=== PATIENT | male | born 1945 | race African-American/Black ===

== ENCOUNTER 2017-06-03 10:54 | Observation (INO) | payer MEDICARE, OTHER ==
[~2017-06-03] VITALS: Ht 177.8 cm; Wt 129.1 kg
--- NOTE | ~2017-06-03 | CT52 ---
[facility] A Service of [facility] & [facility] RADIOLOGY TEXT RESULTS PATIENT: RON ESPOSITO LOCATION: [facility] 563-01 : 44 UNIT #: [id number] AGE: [address]: Toño Moya MD SEX: M ORDER DR: [id number] [facility] [address] [place], [place] [address] [id number] I MR#: [id number] #: [id number] NAME: RON ESPOSITO : 1945 SEX: M STUDY DATE/TIME: 06/04/2017 12:13 UNIT: [facility] ROOM: [facility] STUDY DESCRIPTION: CT Cervical Spine Wo Cont Attending Physician: Toño Moya M.D. Ordering Physician: Toño Moya M.D. Primary Care Physician: Mendez Wu M.D. MEDICAL IMAGING REPORT This report is preliminary unless electronic signature is present EXAM CT cervical spine without contrast HISTORY Neck pain for 3 days, left side. No injury. FINDINGS This CT exam was performed with one or more of the following radiation dose reduction techniques: Automatic exposure control, adjustment of mA and/or kV according to patient size, and iterative reconstruction. CT cervical spine was performed without contrast. Evaluation of the lower cervical spine is partly limited by patient size and positioning. There is straightening of the normal cervical lordosis. There is severe degenerative disc space narrowing from C4-5 to C7-T1 and moderate disc space narrowing at T1-2 and T2-3. Bfvjd-au-tekxhouf sized broad-based posterior marginal osteophytes at C3-4 and C4-5 and small posterior marginal osteophyte at C5-6. Mild bilateral bony outlet foraminal narrowing C4-5. At C6-7, there is a large broad-based marginal osteophyte, slightly greater to the left of midline posteriorly, causing moderate central canal narrowing, and moderate left-sided outlet foraminal narrowing and mild right outlet foraminal narrowing. At C7-T1, there is also a moderate-sized broad-based marginal osteophyte, greater along the left posterolateral disc margin, with mild bilateral bony outlet foraminal narrowing. IMPRESSION 1. Multilevel degenerative and hypertrophic changes are greater at C6-7 where there is moderate central canal narrowing and moderately severe outlet foraminal narrowing, secondary to large posterior marginal STS. [facility] A Service of [facility] & [facility] RADIOLOGY TEXT RESULTS PATIENT: RON ESPOSITO LOCATION: [facility] 56[facility] : 44 UNIT #: [id number] AGE: [address]: Toño Moya MD SEX: M ORDER DR: osteophyte and additional bony hypertrophic changes. 2. No fracture or subluxation. Multilevel moderately severe degenerative disc space narrowing in the mid and lower cervical spine. Dictated by... Pipo Houser M.D. THIS IS AN ELECTRONICALLY VERIFIED REPORT Pipo Houser M.D. at 06/05/2017 11:01 PM DFL/wander TD: 06/05/2017 01:53 JOB #: [id number] MEDICAL IMAGING REPORT Page 1 of 1 COPY
--- NOTE | ~2017-06-03 | CR72 ---
[facility] A Service of [facility] & [facility] RADIOLOGY TEXT RESULTS PATIENT: RON ESPOSITO LOCATION: [facility] 563-01 : 44 UNIT #: [id number] AGE: [address]: Toño Moya MD SEX: M ORDER DR: [id number] [facility] [address] [place], [place] [address] [id number] I MR#: [id number] #: [id number] NAME: RON ESPOSITO. : 1945 SEX: M STUDY DATE/TIME: 06/03/2017 12:51 UNIT: [facility] ROOM: [facility] STUDY DESCRIPTION: CR Chest Single View Portable Attending Physician: Toño Moya M.D. Ordering Physician: Gino Garcia M.D. Primary Care Physician: Mendez Wu M.D. MEDICAL IMAGING REPORT This report is preliminary unless electronic signature is present EXAM Chest, portable; 06/03/2017, 1251 hours. CLINICAL HISTORY 72-year-old man with 2-day history of neck pain, cough and shortness of air. History of hypertension, prior CABG, bladder cancer and diabetes. COMPARISON No prior chest film available. FINDINGS Portable upright chest demonstrates median sternotomy and CABG changes. There is moderate cardiomegaly. There is a left subclavian dual-lead pacer device with leads over the right atrium and right ventricle. There is an air-filled structure along the right heart border consistent with a large hiatal hernia which was demonstrated on upper GI 04/23/2002. There is mild perihilar vascular crowding with no definite edema, pneumonia or effusion. IMPRESSION There is no prior chest film for correlation. There is moderate enlargement of the cardiac silhouette with prior CABG change and dual lead pacer present. The lungs are clear of acute densities. There is no pleural effusion or pneumothorax. There is a lot of large hiatal hernia present. This was demonstrated on upper GI study 04/23/2002. Dictated by... Fiona Kim M.D. THIS IS AN ELECTRONICALLY VERIFIED REPORT Fiona Kim M.D. at 06/04/2017 9:23 AM JAZMINE/diomedes [facility] A Service of [facility] RADIOLOGY TEXT RESULTS PATIENT: RON ESPOSITO LOCATION: C5 563-01 : 44 UNIT #: [id number] AGE: [address]: Toño Moya MD SEX: M ORDER DR: TD: 06/03/2017 22:01 JOB #: [id number] MEDICAL IMAGING REPORT Page 1 of 1 COPY
--- NOTE | ~2017-06-03 | DS ---
Unit #: [id number] #: [id number] Patient: RON ESPOSITO [id number] [address] [place], [place] [address] [id number] MR#: [id number] NAME: RON ESPOSITO. ROOM: 563 Age: 72 Sex: M Admission Date: 06/03/2017 : 1945 Discharge Date: 06/05/2017 Attending Physician: Toño Moya M.D. Primary Care Physician: Mendez Wu M.D. DISCHARGE SUMMARY DISCHARGE DIAGNOSES 1. Neck and left shoulder pain, myofascial syndrome. 2. Elevated troponin, recent non ST elevation myocardial infarction and occlusion of stent in the mid circumflex on 05/27/2017. His troponin at [facility] on May 27 peaked at 38. On this admission it was 9.84. 3. Coronary artery disease status post coronary artery bypass graft x3 (left internal mammary artery to left anterior descending, saphenous vein graft to the right coronary artery, saphenous vein graft to left circumflex). 4. Cardiac catheterization on 05/27/2017 showed an ejection fraction of 40%, an occluded stent in the mid circumflex, left internal mammary artery to left anterior descending was patent, saphenous vein graft to right coronary artery was patent. 5. Chronic systolic congestive heart failure, left ventricular ejection fraction 40%. 6. Sick sinus syndrome status post permanent pacemaker. 7. History of atrial flutter status post ablation. 8. Diabetes mellitus type 2. 9. Hypertension. 10. Hyperlipidemia. 11. Chronic kidney disease. 12. Obstructive sleep apnea with continuous positive airway pressure. 13. Mild anemia. 14. Elevated LFT. 15. Obesity. DISCHARGE MEDICATIONS 1. Flonase 2 sprays daily. 2. Metformin 500 mg p.o. b.i.d. 3. Phenergan 25 mg p.o. q.6 hours as needed for nausea. 4. Atorvastatin 80 mg p.o. at bedtime. 5. Metoprolol succinate 100 mg p.o. daily. 6. Amlodipine/benazepril 10/40 mg 1 cap by mouth daily. 7. Tradjenta 5 mg p.o. daily. 8. Lantus 66 units subcu daily. 9. Coenzyme Q10 10 mg p.o. daily. 10. Multivitamin 1 p.o. daily. 11. Aspirin 81 mg p.o. daily. 12. Plavix 75 mg p.o. daily. 13. Prilosec 40 mg p.o. daily. 14. Imdur ER 60 mg p.o. daily. 15. Fish oil 1 cap p.o. daily. Unit #: [id number] #: [id number] Patient: [facility] This is a 72-year-old male with a significant cardiac history who is a patient of Dr. Faria with [facility]. He had recent non-ST elevation myocardial infarction in May and had a stent placed to his mid circumflex. On May 27 he had to be readmitted and was diagnosed with another non-ST elevation myocardial infarction. A cardiac cath at that time showed the stent collapsed and had an occlusion of the circumflex. His peak troponin at [facility] during that stay was 38. He presented to the emergency room on June 03 with complaints of persistent dry cough and soreness in his neck and left shoulder. He denied any chest pain or pain in his frontal neck radiating into his jaws, shoulders or elbows. He denied palpitations, dizziness, syncope, fever or chills. In the ER his troponin was found to be elevated at 9.84. He was admitted for further observation and to rule out an ischemic event. Throughout his stay his troponins continued to trend down. His neck and left shoulder pain persisted. Dr. Berlin Kong with pain management was consulted. He received steroid injections, which improved his pain. Today his troponin continues to trend down and is 5.24. He is chest pain free and has had no arrhythmias. He is stable for discharge. He will follow up with Dr. Kong in 2-3 weeks and follow up with Dr. Faria with cardiology as previously scheduled. PHYSICAL EXAMINATION GENERAL: This is an alert and oriented 72-year-old male resting in bed in no acute distress. VITAL SIGNS: His blood pressure 133/76, heart rate 65, temperature is 97.7. CHEST/LUNGS: Clear to auscultation with decreased breath sounds in the bases. HEART: S1, S2. Regular rhythm. Paced. ABDOMEN: Soft, nondistended and nontender. EXTREMITIES: No edema. Pulses are palpable. DIAGNOSTIC STUDIES LABORATORY RESULTS: His glucose is 217, BUN 22, creatinine 1.4, sodium 135, potassium 4.4, chloride 100. Troponin 5.24. Hemoglobin 11.5, hematocrit 36.7, white blood cell count 11.6, platelets 390. IMAGING STUDIES: CT of the cervical spine shows multilevel degenerative and hypertrophic changes greater at C6-7 where there is moderate central canal narrowing and moderately severe outlet foraminal narrowing secondary to large posterior marginal osteophyte and bony hypertrophic changes. There is no fracture or subluxation. Multilevel moderately severe degenerative disk space narrowing in the mid and lower C spine. DISCHARGE INSTRUCTIONS 1. The patient will be discharged home to follow up with Dr. Kong in 2-3 weeks. 2. Follow up with Dr. Faria as previously scheduled. 3. Home medications as per med/rec. 4. Prescriptions sent with patient for Medrol Dosepak and hydrocodone. Unit #: [id number] #: [id number] Patient: RON ESPOSITO Dictated by... Jadyn Timmons APRN for Anselmo Russ/pj TD: 06/07/2017 13:45 JOB #: [id number] DISCHARGE SUMMARY Page 1 of 1 X X DISCHARGE SUMMARY
--- NOTE | ~2017-06-03 | EKG ---
PATIENT: RON ESPOSITO UNIT #: [id number] Ventricular Rate: 70 BPM Atrial Rate: 70 BPM P-R Interval: 168 ms QRS Duration: 164 ms Q-T Interval: 464 ms QTC Calculation(Bezet): 501 ms Calculated R [place]: 28 degrees Calculated T [place]: 121 degrees Diagnosis Line: Atrial-sensed ventricular-paced rhythm Diagnosis Line: Abnormal ECG Diagnosis Line: No previous ECGs available Diagnosis Line: Confirmed by DARIEL SOLIS MD ([id number]) on Diagnosis Line: 06/04/2017 8:29:39 AM INTERPRETING MD: IRMA RICH
--- NOTE | ~2017-06-03 | HP ---
Unit #: [id number] #: [id number] Patient: RON ESPOSITO [id number] [facility]. [place], [place] [address] [id number] MR#: [id number] NAME: RON ESPOSITO ROOM: Age: 72 Sex: M Admission Date: 06/03/2017 : 1945 Attending Physician: Gino Garcia M.D. Primary Care Physician: Mendez Wu M.D. HISTORY AND PHYSICAL HISTORY OF PRESENT ILLNESS This is a 72-year-old -Eritre[place] male with having a recent NSTEMI and a stent placed on May 27 at [facility] in the mid circumflex and he had to be readmitted and on May 27 had another heart catheterization and showed that the stent collapsed and had an occlusion of the circumflex. The patient also has a pacemaker. He is a diabetic, has hypertension, diabetes mellitus, obstructive sleep apnea, history years ago of having ablation for paroxysmal atrial fibrillation. Next, patient came to the emergency room today with persistent dry cough and some soreness in the back of his neck. He denied any chest pain, pain in his frontal neck radiating up into the jaw, shoulders, elbows. He denies any palpitations. No dizziness, presyncope or syncope. Denies any fever or chills. Patient states that he was told he had pneumonia on his admission at [facility] May 21. He is concerned he might be trying to get pneumonia so he came to the emergency room for further evaluation. In the emergency room the patient's blood pressure was 144/78, heart rate 80, respirations 18, temperature is 99.1, O2 sat is 100% on room air. Initial cardiac enzymes EKG: His CK-MB was 16.4 with troponin 9.84. His WBCs are 10, hemoglobin 10.7, hematocrit 34.1. His glucose is 116. His BUN is 18, creatinine 1.2. His EKG shows ventricular paced, atrial sensed, underlying sinus rhythm. His chest x-ray preliminary report did not show anything acute. Patient will be admitted for further evaluation and management. Patient was given 4 mg of morphine, ordered Brilinta 180 mg STAT and Lovenox STAT. PAST MEDICAL HISTORY 1. Recent NSETMI on 05/18/2016, status post cardiac cath which revealed: a. Qawalangin three-vessel coronary artery disease including the left main. b. Two of three patent coronary artery bypass grafts to the LAD and RCA, one saphenous vein graft presumably to the circumflex is occluded. c. XIENCE Alpine drug-eluting stent with PCI to the mid circumflex in a T fashion. d. Moderate disease of the small lower branch of the posterolateral branch after the RCA saphenous vein graft anastomosis, proximal LAD prior to the diagonal takeoff, and proximal circumflex. e. Abdominal aortic stenosis. 2. Readmitted for a chest pain and NSETMI on 05/27/2017. Repeat heart Unit #: [id number] #: [id number] Patient: VAIBHAVRON Yolanda catheterization showed occlusion of the circumflex stent, decreased LV systolic function with ejection fraction of 40%. Noted that prior echo showed a normal EF. 3. Pacemaker. 4. Obstructive sleep apnea, on CPAP. 5. Hypertension. 6. Hyperlipidemia. 7. History of atrial flutter, status post ablation in 2008. 8. History of bladder cancer years ago. 9. Obesity. 10. GERD. 11. Nonsmoker. 12. He had a new diastolic congestive heart failure on admission in [facility]. 13. Chronic kidney disease. PAST SURGICAL HISTORY 1. Coronary artery bypass in 1997 x3 grafts. 2. Status post PCI and stent to the mid circumflex in T fashion on 05/21/2017. 3. Status post ablation for atrial flutter back in 2008. 4. Colonoscopy. 5. Knee surgery. 6. Permanent pacemaker. 7. Dual chamber back in 2013. HOME MEDICATIONS 1. Amlodipine and benazepril which is Lotrel 10/40 one tablet p.o. daily. 2. Aspirin 81 mg daily. 3. Lipitor 80 mg p.o. daily. 4. Clonidine one tablet p.o. b.i.d. 5. Plavix 75 mg daily p.o. daily. 6. CoQ10 one tablet p.o. daily. 7. Flonase one nasal spray each nostril daily. 8. Isosorbide mononitrate which is Imdur 60 mg one tablet daily. 9. Lantus 66 units daily. 10. Tradjenta 5 mg one tablet daily. 11. Glucophage 500 mg one tablet b.i.d. with meals. 12. Metoprolol or Toprol XL 100 mg one tablet daily. 13. Multivitamin one tablet daily. 14. Lockhart 3 fish oil 1000 mg tablet one tablet daily. 15. Prilosec 40 mg one tablet daily. 16. Phenergan 25 mg one tablet p.r.n. ALLERGIES No known allergies. SOCIAL HISTORY Patient lives with his spouse. He is very sedentary. He says he has a hard time walking far as his legs give out. He has been weak. He has neuropathy, been a lifelong nonsmoker, no alcohol or illicit drug abuse. FAMILY HISTORY Both his parents in their 80s. His mother had some type of heart problems. His father of unknown causes. Siblings no known coronary artery disease. REVIEW OF SYSTEMS Unit #: [id number] #: [id number] Patient: RON ESPOSITO CONSTITUTIONAL: Denies fever or chills. No recent weight gain or weight loss. HEENT: Denies headache or dizziness. No visual or hearing changes. No lymphadenopathy or thyromegaly. No difficulty swallowing. CARDIOVASCULAR: Denies chest pain. Denies palpitations. Denies increased lower extremity edema. PULMONARY: A persistent dry cough. Denies paroxysmal nocturnal dyspnea or orthopnea. It is a nonproductive cough. GASTROINTESTINAL: Denies nausea, vomiting, diarrhea and abdominal pain. NEUROLOGICAL: No focal weakness. PHYSICAL EXAMINATION GENERAL: On exam the patient a 72-year-old -Eritrean male in no acute respiratory distress. He is awake, alert and oriented. VITAL SIGNS: Blood pressure 144/78, heart rate 80, respirations 18, temperature 99.1, O2 sats 100% on room air. NECK: Trachea midline. No thyromegaly or lymphadenopathy. Normal carotid upstrokes. No jugular venous distention. HEART: S1, S2, regular rate and rhythm. No clicks, murmurs or rubs. LUNGS: Diminished, otherwise clear. ABDOMEN: Obese, soft, nontender. EXTREMITIES: Pedal pulses are weak. DPs are very faint. PTs are present. DIAGNOSTIC STUDIES LABORATORY: Glucose is 116, BUN 18, creatinine 1.2, eGFR is 69.1, sodium 137, potassium 3.7, chloride 103, CO2 25, calcium is 8.7, total protein 7.6, albumin 2.8, bilirubin total of 0.7, AST 58, ALT 76 and alkaline phosphatase is 50. WBCs 10.1, hemoglobin 10.7, hematocrit 34.1 and platelets of 310. Initial cardiac enzymes: CK-MB is 16.4 with troponin 9.84. Next, CK-MB is 16.3 with a troponin of 10.1. CARDIOVASCULAR: EKG shows ventricular paced rhythm, underlying sinus rhythm. IMPRESSION 1. Elevated troponin, recent non-ST elevation myocardial infarction and occlusion of stent in the mid circumflex on 05/27/2017. 2. Persistent cough. Recent pneumonia. 3. Hypertension. 4. Diabetes mellitus type 2. 5. Hyperlipidemia. 6. Permanent pacemaker. 7. History of paroxysmal atrial flutter status post ablation. 8. Obstructive sleep apnea, used CPAP. 9. Gastroesophageal reflux disease. 10. Mild obesity. 11. Chronic kidney disease. 12. Chronic diastolic congestive heart failure. 13. Left ventricular ejection fraction was normal on the catheterization on 05/21/2017 at [facility]. On last cardiac catheterization 05/27/2017 his ejection fraction was down to 40%. 14. Elevated liver function tests. 15. Nonsmoker. PLAN 1. Patient came in for complaints of some tension in the back of his neck and also a persistent cough. Patient stated he is getting over Unit #: [id number] #: [id number] Patient: RON ESPOISTO pneumonia he was told when he was at [facility] in the early part of May. He denies any fever or chills. His chest x-ray preliminary report does not show anything acute. Patient's cardiac enzymes were obtained and (1) findings. His troponin was elevated at 9.84. Patient denies any signs or symptoms of unstable angina or acute congestive heart failure. The patient was just discharged from [facility] this past Friday which was about three days ago and he had his last heart catheterization less than a week ago. Obtain records from [facility] and on May 27 his troponin was elevated to 38. This may be trending on a downward trend from that troponin. Although until we can get another set of enzymes and evaluate it trending downward will treat. Give a therapeutic dose of Lovenox, stopping the Plavix and starting on Brilinta and giving a loading dose of 180 mg. Will also make sure the patient is on aspirin. 2. It is noted the patient had a fasting lipoid profile at [facility] and those results were done on 05/20/2017: Triglycerides 125, cholesterol 131, HDL 43, LDL 63, TSH less than 0.9. His last troponin peaked at 38, that was on 05/27/2017. 3. The patient's last hemoglobin was on 05/28/2017 which was 11.9 and hematocrit 37. On his last CMP on 05/27/2017 his total bilirubin was 0.7 with AST 73, ALT 58 and alkaline phosphatase is 46. 4. Continue patient on his nitrate, statin, beta tere, Brilinta, dual antiplatelet therapy with aspirin and Brilinta and also therapeutic dosing of Lovenox. 5. Dr. Moya will review the patient, all of his records from [facility] and most likely will get the cath film from [facility] to review. 6. Further recommendations pending per Dr. Moya. Dictated by Analy Hercules A.P.R.N. for Anselmo Russ/ivana TD: 06/03/2017 17:24 JOB #: [id number] HISTORY AND PHYSICAL Page 1 of 1 X Analy Hercules APRN HISTORY AND PHYSICAL
--- NOTE | ~2017-06-03 | BMI ---
[facility] Nutrition Therapy DATE: 06/04/17 Patient: RON ESPOSITO Physician: DARREL Address: [address] Room/Bed: [address] [place] [address], Zip: [place] [address] Admit Date: 06/03/17 Date of : [birth year] Height: 5 10 Weight: 285 129.6 HIGH BMI NOTE: DX: 72 y/o male admitted for chest pain ANTHROPOMETRICS: ht: 5'10" wt: 285# (129 kg) BMI 42 DIET: Healthy heart INTERVENTION: 1. Healthy heart diet RECOMMENDATIONS: 1. Continue current healthy heart diet in order to promote gradual weight loss towards a healthy BMI (19.0-25.0). RD will f/u per protocol. Respectfully, DAYA LÓPEZ, automotive internet sales manager Romaine Kan MS, RD, LD [facility] cc: client file
[~2017-06-03 10:54] MED LIST: ANSAID100 MG PO; ASPIRIN PO; JANUVIA PO; KROGER PHARMACY; LOTREL 5/20 MG1 CAP PO; TOPROL XL PO; ZANTAC PO
[2017-06-03 11:50] LABS: BASOPHIL# 0.1 X10e3 (0-0.3); BASOPHIL% 0.5 % (0-2.5); EOSINOPHIL# 0.1 X10e3 (0-0.7); EOSINOPHIL% 0.8 % (0.0-7.0); HEMATOCRIT 34.1 % (38.0-50.0); HEMOGLOBIN 10.7 gm/dL (13.0-16.0); LYMPHOCYTE# 1.9 X10e3 (1.0-3.5); LYMPHOCYTE% 18.3 % (17.0-45.0); MEAN CELL VOLUME 81.5 FL (83-96); MEAN CORPUSCULAR HEMOGLOBIN 25.5 PG (28-34); MEAN CORPUSCULAR HGB CONC 31.3 g/dL (30-36); MEAN PLATELET VOLUME 9.3 FL (6.5-11.5); MONOCYTE# 0.8 X10e3 (0-1.0); MONOCYTE% 7.9 % (3.0-12.0); NEUTROPHIL# 7.4 X10e3 (1.5-7.1); NEUTROPHIL% 72.5 % (40-75); PLATELET COUNT 310 X10e3 (140-420); RED BLOOD COUNT 4.18 X10e (3.90-5.60); RED CELL DISTRIBUTION WIDTH 15.7 % (11.0-15.5); WHITE BLOOD COUNT 10.1 X10e3 (4.0-10.5)
[2017-06-03 12:05] LABS: DIFF IND NO
[2017-06-03 12:12] LABS: POC - CKMB 16.4 ng/mL (0.0-7.9); POC - TROPONIN 9.84 ng/mL (<=0.05)
[2017-06-03 12:18] LABS: ALBUMIN SERUM 2.8 g/dL (3.5-5.0); BILIRUBIN, DIRECT 0.1 mg/dL (0.0-0.2); BILIRUBIN,INDIRECT 0.6 mg/dL (0.0-0.9); BILIRUBIN,TOTAL 0.7 mg/dL (0.2-2.0); CALCIUM SERUM 8.7 mg/dL (8.4-10.2); CREATININE SERUM 1.2 mg/dL (0.6-1.4); GLOM FILT RATE Estimated 69.1 mL/min (>60); POTASSIUM 3.7 mmol/L (3.5-5.1); PROTEIN TOTAL SERUM 7.6 g/dL (6.0-8.3)
[2017-06-03] MEDS ORDERED: IMDUR-ER60 M2 PO (13:05)
[2017-06-03] MEDS ORDERED: AMLODIPINE-BEN1 EAC5 PO (13:05)
[2017-06-03] MEDS ORDERED: METOPROLOL SUC100 MG PO (13:06)
[2017-06-03] MEDS ORDERED: LANTUS100 U/ML SUBQ (13:06)
[2017-06-03] MEDS ORDERED: PHENERGAN25 M1 PO (13:07)
[2017-06-03] MEDS ORDERED: PRILOSEC PO (13:07)
[2017-06-03] MEDS ORDERED: METFORMIN HCL500 M1 PO (13:07)
[2017-06-03] MEDS ORDERED: ASPIRIN81 M2 PO (13:07)
[2017-06-03] MEDS ORDERED: CLOPIDOGREL75 MG PO (13:08)
[2017-06-03 13:39] LABS: POC - CKMB 16.3 ng/mL (0.0-7.9); POC - TROPONIN 10.1 ng/mL (<=0.05)
[2017-06-03] MEDS ORDERED: CATAPRES0.1 MG PO (14:29)
[2017-06-03] MEDS ORDERED: FLONASE ALLERG9.9 ML (14:30)
[2017-06-03] MEDS ORDERED: COENZYME Q-1030 MG PO (14:30)
[2017-06-03] MEDS ORDERED: TRADJENTA5 MG PO (14:31)
[2017-06-03] MEDS ORDERED: MULTIVITAMINS1 EAC3 PO (14:32)
[2017-06-03] MEDS ORDERED: FISH OIL 1,0001 EAC1 PO (14:33)
[2017-06-03 20:03] LABS: %MB 1.8 % (0.0-4.0); MB 7.4 ng/ml
[2017-06-04 02:16] LABS: %MB 1.6 % (0.0-4.0)
[2017-06-04 06:27] LABS: HEMATOCRIT 33.3 % (38.0-50.0); HEMOGLOBIN 10.7 gm/dL (13.0-16.0); MEAN CELL VOLUME 80.1 FL (83-96); MEAN CORPUSCULAR HEMOGLOBIN 25.8 PG (28-34); MEAN CORPUSCULAR HGB CONC 32.2 g/dL (30-36); RED BLOOD COUNT 4.15 X10e (3.90-5.60); RED CELL DISTRIBUTION WIDTH 15.4 % (11.0-15.5); WHITE BLOOD COUNT 10.6 X10e3 (4.0-10.5)
[2017-06-04 07:02] LABS: ALBUMIN SERUM 3.1 g/dL (3.5-5.0); BILIRUBIN,TOTAL 0.9 mg/dL (0.2-2.0); BUN/CREATININE RATIO 13.07; CALCIUM SERUM 9.1 mg/dL (8.4-10.2); CREATININE SERUM 1.3 mg/dL (0.6-1.4); GLOM FILT RATE Estimated 62.8 mL/min (>60); POTASSIUM 3.7 mmol/L (3.5-5.1); PROTEIN TOTAL SERUM 8.3 g/dL (6.0-8.3)
[2017-06-04 16:39] LABS: URINE APPEARANCE CLEAR; URINE BILIRUBIN NEG (NEG); URINE BLOOD TRACE (NEG); URINE COLOR YELLOW; URINE GLUCOSE NEG (NEG); URINE KETONE NEG (NEG); URINE LEUKOCYTE ESTERASE NEG (NEG); URINE NITRATE NEG (NEG); URINE PROTEIN TRACE (NEG); URINE SPECIFIC GRAVITY 1.019 (1.003-1.035)
[2017-06-04 16:42] LABS: URBCS1 AUWI 0-2 /[HPF] (0-2); URINE BACTERIA AUWI NEG (NEGATIVE); URINE SQUAMOUS EPITHELIAL CELL NONE SEEN /[HPF]; UWBCS1 AUWI 0-2 (0-5)
[2017-06-05 06:53] LABS: HEMATOCRIT 36.7 % (38.0-50.0); HEMOGLOBIN 11.5 gm/dL (13.0-16.0); MEAN CELL VOLUME 81.9 FL (83-96); MEAN CORPUSCULAR HEMOGLOBIN 25.6 PG (28-34); MEAN CORPUSCULAR HGB CONC 31.3 g/dL (30-36); RED BLOOD COUNT 4.47 X10e (3.90-5.60); RED CELL DISTRIBUTION WIDTH 15.7 % (11.0-15.5); WHITE BLOOD COUNT 11.6 X10e3 (4.0-10.5)
[2017-06-05 07:49] LABS: BUN/CREATININE RATIO 15.71; CALCIUM SERUM 9.5 mg/dL (8.4-10.2); CREATININE SERUM 1.4 mg/dL (0.6-1.4); GLOM FILT RATE Estimated 57.4 mL/min (>60); POTASSIUM 4.4 mmol/L (3.5-5.1)
[2017-06-05] MEDS ORDERED: LIPITOR80 MG PO (14:11)
[2017-06-05] MEDS ORDERED: MEDROL PO (14:12)
[2017-06-05] MEDS ORDERED: HYDROCODON-ACE1 EAC9 PO (14:21)
== END 2017-06-05 15:44 | disposition home or self-care (01) ==
LOC: CED 10:54 → CEDOF 17:37 → C5C 20:50
PROVIDERS: Emergency Medicine; Internal Medicine Cardiovascular Disease; Nurse Practitioner
DX: M79.1 Myalgia (principal); R79.89 Other specified abnormal findings of blood chemistry; I51.7 Cardiomegaly; K44.9 Diaphragmatic hernia without obstruction or gangrene; M50.323 Other cervical disc degeneration at C6-C7 level; I25.10 Atherosclerotic heart disease of native coronary artery without angina pectoris; Z95.1 Presence of aortocoronary bypass graft; Z95.5 Presence of coronary angioplasty implant and graft; I49.5 Sick sinus syndrome; Z95.0 Presence of cardiac pacemaker; E11.9 Type 2 diabetes mellitus without complications; Z79.84 Long term (current) use of oral hypoglycemic drugs; Z23 Encounter for immunization; E78.5 Hyperlipidemia, unspecified; I13.0 Hypertensive heart and chronic kidney disease with heart failure and stage 1 through stage 4 chronic kidney disease, or unspecified chronic kidney disease; N18.9 Chronic kidney disease, unspecified; I50.22 Chronic systolic (congestive) heart failure; G47.33 Obstructive sleep apnea (adult) (pediatric); D63.1 Anemia in chronic kidney disease; E66.9 Obesity, unspecified; Z68.41 Body mass index [BMI] 40.0-44.9, adult; Z79.82 Long term (current) use of aspirin; Z85.51 Personal history of malignant neoplasm of bladder
CPT/HCPCS: 36415; 71010; 72125; 80048; 80053; 80076; 81003; 82550; 82553; 82947; 84484; 85025; 85027; 90732; 93005; 96372; 96374; 96375; 96376; 99285; G0009; G0378; J1040; J1100; J1650; J1815; J2270; J2405